=== PATIENT | male | born 1950 | race Caucasian/White ===

== ENCOUNTER 2024-08-04 14:48 | Emergency (ER) | payer MEDICARE, SELFPAY ==
--- NOTE | 2024-08-04 14:51 | CT_ITS ---
PROCEDURE INFORMATION: Exam: CTA Neck With Contrast Exam date and time: 08/04/2024 3:00 PM Age: 74 years old Clinical indication: Stroke-like symptoms; RT upper extremity weakness; Additional info: Possible stroke TECHNIQUE: Imaging protocol: Computed tomographic angiography of the neck with contrast. Exam focused on the cervical segments of the vasculature. 3D rendering (Not supervised by radiologist): MIP and/or 3D reconstructed images were created by the technologist. Radiation optimization: All CT scans at this facility use at least one of these dose optimization techniques: automated exposure control; mA and/or kV adjustment per patient size (includes targeted exams where dose is matched to clinical indication); or iterative reconstruction. Contrast material: ISOVUE; Contrast volume: 80 ml; Contrast route: INTRAVENOUS (IV); COMPARISON: CT CERVICAL SPINE WO CON 08/04/2024 2:58 PM FINDINGS: Right common carotid artery: No stenosis. No dissection or occlusion. Right internal carotid artery: No stenosis of the extracranial segment. No dissection or occlusion. Right external carotid artery: No occlusion or stenosis of the origin. Left common carotid artery: No stenosis. No dissection or occlusion. Left internal carotid artery: No stenosis of the extracranial segment. No dissection or occlusion. Left external carotid artery: No occlusion or stenosis of the origin. Right vertebral artery: No stenosis. No dissection or occlusion. Left vertebral artery: No stenosis. No dissection or occlusion. Soft tissues: Normal. No significant soft tissue swelling. Bones/joints: No acute fracture. IMPRESSION: No stenosis or occlusion. REFERENCES: NASCET CRITERIA. The degree of stenosis in the cervical segment of the internal carotid artery is based on NASCET criteria. Normal is no stenosis. Mild is less than 50% stenosis. Moderate is 50-69% stenosis. Severe is 70% to 99% stenosis. Total occlusion is no detectable patent lumen.
--- NOTE | 2024-08-04 14:51 | CT_ITS ---
PROCEDURE INFORMATION: Exam: CT Head Without Contrast Exam date and time: 08/04/2024 2:57 PM Age: 74 years old Clinical indication: Stroke-like symptoms; RT upper extremity weakness; Additional info: Possible stroke TECHNIQUE: Imaging protocol: Computed tomography of the head without contrast. Radiation optimization: All CT scans at this facility use at least one of these dose optimization techniques: automated exposure control; mA and/or kV adjustment per patient size (includes targeted exams where dose is matched to clinical indication); or iterative reconstruction. Other technique: STROKE PROTOCOL was implemented. COMPARISON: No relevant prior studies available. FINDINGS: Brain: Central and cortical brain atrophy evident, appropriate for patient age. There is nonspecific periventricular low attenuation, likely microangiopathic disease. No acute intracranial hemorrhage. Cerebral ventricles: No ventriculomegaly. Paranasal sinuses: Visualized sinuses are unremarkable. No fluid levels. Mastoid air cells: Visualized mastoid air cells are well aerated. Bones: Unremarkable. No acute fracture. Soft tissues: Unremarkable. IMPRESSION: No acute intracranial abnormality. ASSESSMENT: ASPECTS ([place] Stroke Program Early CT Score) is 10.
--- NOTE | 2024-08-04 14:51 | CT_ITS ---
PROCEDURE INFORMATION: Exam: CTA Head With Contrast, Arteriography Exam date and time: 08/04/2024 3:00 PM Age: 74 years old Clinical indication: Stroke-like symptoms; RT upper extremity weakness; Additional info: Possible stroke TECHNIQUE: Imaging protocol: Computed tomographic angiography of the head with contrast. Exam focused on the arteries. 3D rendering (Not supervised by radiologist): MIP and/or 3D reconstructed images were created by the technologist. Radiation optimization: All CT scans at this facility use at least one of these dose optimization techniques: automated exposure control; mA and/or kV adjustment per patient size (includes targeted exams where dose is matched to clinical indication); or iterative reconstruction. Contrast material: ISOVUE; Contrast volume: 80 ml; Contrast route: INTRAVENOUS (IV); COMPARISON: CT HEAD/BRAIN WO CON 08/04/2024 2:57 PM FINDINGS: ANTERIOR CIRCULATION: Right internal carotid artery: Intracranial segment is patent with no significant stenosis. No aneurysm. Right middle cerebral artery: No occlusion or significant stenosis. No aneurysm. Right anterior cerebral artery: No occlusion or significant stenosis. No aneurysm. Left internal carotid artery: Intracranial segment is patent with no significant stenosis. No aneurysm. Left middle cerebral artery: Occlusion of the M2 segment left MCA. Left M1 segment MCA patent. Left anterior cerebral artery: No occlusion or significant stenosis. No aneurysm. POSTERIOR CIRCULATION: Right vertebral artery: No occlusion or significant stenosis. No aneurysm. Left vertebral artery: No occlusion or significant stenosis. No aneurysm. Basilar artery: No occlusion or significant stenosis. No aneurysm. Right posterior cerebral artery: No occlusion or significant stenosis. No aneurysm. Left posterior cerebral artery: No occlusion or significant stenosis. No aneurysm. Brain: No definite mass, mass effect, or midline shift. Cerebral ventricles: No ventriculomegaly. Bones/joints: Unremarkable. No acute fracture. Soft tissues: Unremarkable. IMPRESSION: Occlusion of the M2 segment left MCA. Findings were discussed with TANK Hansen on 08/04/2024 3:30 PM EDT
--- NOTE | 2024-08-04 14:53 | ECG_ITS ---
APPROVED REPORT Exam: Resting ECG HR:89 bpm ECG Measurements Heart Rate 89 AXES QRSd 159 QRS -74 QT 382 T 77 QTc 429 Conclusion Normal sinus rhythm, left axis deviation, right bundle branch block Electronically signed by : Jakub Phillips, 08/04/2024 16:16:48
--- NOTE | 2024-08-04 14:53 | CT_ITS ---
PROCEDURE INFORMATION: Exam: CT Cervical Spine Without Contrast Exam date and time: 08/04/2024 2:58 PM Age: 74 years old Clinical indication: Other: Possible stroke; Additional info: Stroke alert, found on ground TECHNIQUE: Imaging protocol: Computed tomography of the cervical spine without contrast. Radiation optimization: All CT scans at this facility use at least one of these dose optimization techniques: automated exposure control; mA and/or kV adjustment per patient size (includes targeted exams where dose is matched to clinical indication); or iterative reconstruction. COMPARISON: CT HEAD/BRAIN WO CON 08/04/2024 2:57 PM FINDINGS: Bones: No acute fracture. Normal alignment. Severe disc space narrowing C5-C6 and C6-C7 with osteophyte formation. Mild disc space narrowing at C7-T1. No significant disc bulge or herniation. No severe spinal canal stenosis. Multilevel facet arthropathy with associated foraminal stenosis. Lungs: Lung apices are normal. Soft tissues: Unremarkable. IMPRESSION: No acute findings.
--- NOTE | 2024-08-04 14:56 | PC.NURSE ---
fingerstick glucose 119
[2024-08-04 14:57] VITALS: BP 208/118; PULSE 93; RESP 20; TEMP 36.8; O2SAT 93; BMI 25.7
[2024-08-04] MEDS: IOPAMIDOL-370 (76%);100ML BOTTLE 80 ML IV (15:01)
[2024-08-04] MEDS: SODIUM CHLORIDE 0.9% 10ML SYR (RAD ONLY) 10 ML IV (15:01)
[2024-08-04] MEDS: 0.9 % SODIUM CHLORIDE 50 ML VIAL IV (15:01)
--- NOTE | 2024-08-04 15:04 | PC.NURSE ---
pt returned to room from CT scan.
[2024-08-04 15:06] LABS: Basophils # 0.1 K/mm3 (0-0.2); Basophils % 0.8 % (0.1-2.0); Eosinophils # 0.1 Kmm3 (0.0-0.4); Eosinophils % 0.6 % (0.1-12.0); Hematocrit 51.1 % (42.0-52.0); Lymphocytes # 1.7 K/mm3 (0.7-4.5); Lymphocytes % 16.3 % (10-50); Mean Corpuscular HGB Conc 35.6 g/dL (31.8-35.4); Mean Corpuscular Hemoglobin 31.6 pg (27.0-31.2); Mean Corpuscular Volume 88.7 fl (80-94); Mean Platelet Volume 9.7 fl (7.4-10.4); Monocytes # 0.7 K/mm3 (0.1-1.0); Monocytes % 6.3 % (1.7-9.3); Neutrophils # 7.9 K/mm3 (1.8-7.8); Neutrophils % 75.5 % (37.0-80.0); Nucleated Red Blood Cells # 0 10^3/uL; Nucleated Red Blood Cells % 0 %; Platelet Count 280 K/mm3 (142-424); Red Blood Count 5.76 M/mm3 (4.60-6.20); Red Cell Distribution Width 13.1 % (11.5-17.5); Red Cell Distribution Width-SD 42.5 fL; White Blood Count 10.4 K/mm3 (4.8-10.8)
[2024-08-04 15:07] LABS: Albumin Level 4.8 g/dl (3.5-5.0); Chloride 104 mmol/L (98-107); Potassium 4.2 mmoL/L (3.5-5.1); Sodium 134 mmol/L (136-145)
[2024-08-04 15:09] LABS: Alanine Aminotransferase 34 U/L (12-78); Alkaline Phosphatase 64 U/L (38-126); Aspartate Amino Transferase 53 U/L (17-59); Bilirubin,Total 1.6 mg/dl (0.2-1.3); Blood Urea Nitrogen 14 mg/dl (9-20); Creatinine Clearance Estimated 81 mL/min (50-200); Estimated Glomerular Filt Rate 73 ml/min (>60); GFR (African American) 88 ML/MIN (>60)
[2024-08-04 15:10] LABS: Albumin/Globulin Ratio 1.5 (1.1-1.8); Anion Gap 11.2 mEq/L (5-15); Calcium 9.8 mg/dl (8.4-10.2); Carbon Dioxide 23 mmol/L (22.0-30.0); Cholesterol 206 mg/dl (140-200); Creatine Kinase 331 U/L (55-170); Globulin 3.2 g/dL (1.3-3.2); Glucose 115 mg/dl (74-100); Triglycerides 208 mg/dl (30-150); VLDL Cholesterol 42 mg/dL (0-40)
[2024-08-04 15:11] LABS: Chol/HDL Ratio 5.7 (1-3.5); HDL Cholesterol 36 mg/dl (40-60)
[2024-08-04 15:14] LABS: Hemoglobin 18.2 g/dL (14.1-18.0)
--- NOTE | 2024-08-04 15:15 | ED_ITS ---
Discharge Plan Disposition Patient Disposition: Xfer Other Condition: Serious Chief Complaint: Neuro Symptoms/Deficit Prescriptions Prescriptions: No Action cephalexin 500 MG capsule 500 mg PO Q6H 10 Days Qty: 40 0RF Referrals Follow up/Referrals: Jessica Conteh MD [Primary Care Provider] - See instructions Clinical Impressions Clinical Impression: Acute CVA (cerebrovascular accident) Stand Alone Forms Stand Alone Forms: Transfer Record - ED Print Language Print Language: Georgian Discharge ED Provider: Jakub Phillips General Adult HPI General Chief complaint: Neuro Symptoms/Deficit Stated complaint: Stroke like symptoms Time Seen by Provider: 08/04/24 14:48 Mode of Arrival: Wheelchair Source of Information: Patient and Relative Description of Symptoms (Recalled from ER Triage Doc. by RN): pt daughter brought him in [place] to stroke like s/s, last known well at 1000 today per daughter, upon triage fbs 119, pt manual BP was 208/119, pt speech is slurred with facial droop History of Present Illness HPI narrative: 74-year-old male presents to the ED due to strokelike symptoms with last known normal at approximately 10 AM this morning per daughter. Patient was found on ground in barn while feeding animals. Presents today with slurred speech, right facial droop. Seen at bedside immediately on arrival, stroke alert called on arrival. Past medical history of hypertension, hyperlipidemia. Not on blood thinners however patient does take daily aspirin presumably for medical prophylaxis. Glucose 119 on arrival. NIH 11. Patient is having right facial droop, global aphasia, dysarthria, limb ataxia, drift of right lower extremity. Patient denies loss of consciousness. Denies chest pain, shortness of breath. Following commands. Alert. Unable to answer how old he is or what month it is. Aphasia, dysarthria. Due to timeframe patient is not eligible for tPA or TNK Related Data Previous Rx's ?Medication ?Instructions ?Recorded cephalexin 500 mg capsule 500 mg PO Q6H 10 days #40 caps 04/16/19 Allergies Allergy/AdvReac Type Severity Reaction Status Date / Time No Known Allergies Allergy Verified 04/16/19 09:48 [facility] Disclaimer: The information contained in this section may have been updated after the patient was seen, as this information can be updated by other users. Social History Smoking Status: Never smoker alcohol intake: never current occupational status: other Travel in the last 8 weeks?: None Have you lived/traveled outside [place] in past 30 days?: No Contact w/someone who lives/traveled outside US past 30 days?: No Exposure to someone with infectious disease in past 14 days?: No Do you have a fever (greater than 100.4 F or 38 C)?: No Have you tested positive for COVID-19?: No Exposed to someone with COVID-19 in past 14 days?: No Do you have a sore throat?: No Do you have a cough?: No Do you have any weakness?: No Do you have any diarrhea?: No Are you experiencing any unusual bleeding?: No Do you have any muscle aches/pain?: No Do you have any abdominal pain?: No Are you experiencing loss of taste or smell?: No ROS Obtained: Yes Systems reviewed as appropriate & no additional complaints except as documented Physical Exam General General appearance: alert and in distress Head Head exam: atraumatic and normocephalic Eye Eye exam: Present normal appearance, PERRL and EOMI ENT ENT exam: Present normal exam Neck Neck exam: Present normal inspection and full ROM Chest Chest inspection: Present normal inspection and symmetric chest wall rise; Absent tenderness Respiratory Respiratory exam: Absent respiratory distress or stridor Cardiovascular Cardiovascular exam: Present regular rate and normal rhythm Abdominal Exam Abdominal exam: Present soft; Absent distention or tenderness Extremities Exam Extremities exam: Present normal inspection and full ROM Back Exam Back exam: Present normal inspection Neurological Exam Neurological exam: Present alert and other (Upper extremity limb ataxia bilaterally, aphasia, dysarthria, visual alanis intact, right sided facial droop, slurred speech, sensation intact bilaterally, right lower extremity with drift, NIH 11) Psychiatric Psychiatric exam: Present normal affect Skin Skin exam: Present warm, dry and intact Medical Decision Making Medical Records Medical records reviewed: Yes I reviewed the patient's medical records. Screening: Per USPSTF and CDC recommendations, given the prevalence of disease in our region, it is our hospital?s policy to screen for HIV and viral Hepatitis for all patients aged 18 and over and those with ongoing risk factors. [place] Inquiry Pt receiving controlled substance: No Vital Signs: 08/04/24 14:57 08/04/24 15:30 Temperature 98.2 F Temperature Source Oral Pulse Rate 78 Pulse Rate [Left Radial] 93 H Respiratory Rate 20 15 Blood Pressure 170/93 H Blood Pressure [Right Arm] 208/118 H Blood Pressure Mean 118 Blood Pressure Mean [Right Arm] 148 Blood Pressure Source [Right Arm] Manual Cuff/ Auscultation 02 Sat by Pulse Oximetry 93 L 96 Oxygen Delivery Method Room Air Room Air Lab Data Lab Results 08/04/24 14:51: WBC 10.4, RBC 5.76, Hgb 18.2 H, Hct 51.1, MCV 88.7, MCH 31.6 H, MCHC 35.6 H, RDW 13.1, Plt Count 280, MPV 9.7, Neut % (Auto) 75.5, Lymph % (Auto) 16.3, [place] % (Auto) 6.3, Eos % (Auto) 0.6, Baso % (Auto) 0.8, Neut # (Auto) 7.9 H, Lymph # (Auto) 1.7, [place] # (Auto) 0.7, Eos # (Auto) 0.1, Baso # (Auto) 0.1, Sodium 134 L, Potassium 4.2, Chloride 104, Carbon Dioxide 23, Anion Gap 11.2, BUN 14, Creatinine 1.00, Estimated Creat Clear 81, Estimated GFR 73, Est GFR ( Amer) 88, Glucose 115 H, Calcium 9.8, Total Bilirubin 1.6 H, AST 53, ALT 34, Alkaline Phosphatase 64, Total Creatine Kinase 331 H, Troponin I 0.02, Total Protein 8.0, Albumin 4.8, Globulin 3.2, Albumin/Globulin Ratio 1.5, Triglycerides 208 H, Cholesterol 206 H, LDL Cholesterol Direct 131.35 H, VLDL Cholesterol 42 H, HDL Cholesterol 36 L, Cholesterol/HDL Ratio 5.7 H, Plasma/Serum Alcohol < 10 08/04/24 14:51 08/04/24 14:51 Orders (Tests/Meds): ED MEDICATIONS Generic Name Dose Route Start Last Admin Trade Name Freq PRN Reason Stop Dose Admin Sodium Chloride 10 ml 08/04/24 14:51 Sodium Chloride 0.9% 10ml Flush Syringe IV 09/03/24 14:50 NEEDED PRN Maintain IV Site Sodium Chloride 10 ml 08/04/24 15:00 08/04/24 15:01 Sodium Chloride 0.9% 10ml Syr (Rad Only) IV 09/03/24 14:59 10 ml NEEDED PRN Administration Maintain IV Site Discontinued Medications Generic Name Dose Route Start Last Admin Trade Name Freq PRN Reason Stop Dose Admin Iopamidol 80 ml 08/04/24 15:00 08/04/24 15:01 Iopamidol-370 (76%);100ml Bottle IV 08/04/24 15:01 80 ml ONCE ONE Administration Sodium Chloride 50 ml 08/04/24 15:00 08/04/24 15:01 0.9 % Sodium Chloride 50 Ml Vial IV 08/04/24 15:01 50 ml ONCE ONE Administration ORDERS Category Date Time Status CT angio head Stat Cat Scan 08/04/24 14:[address] angio neck Stat Cat Scan 08/04/24 14:[address] cervical spine wo con Stat Cat Scan 08/04/24 14:[address] head/brain wo con Stat Cat Scan 08/04/24 14:51 Completed Activated Partial Thrombo Time Stat Lab 08/04/24 14:51 Received CK [Creatine Kinase] Stat Lab 08/04/24 14:51 Completed Complete Blood Count Auto Diff Stat Lab 08/04/24 14:51 Completed Comprehensive Metabolic Panel Stat Lab 08/04/24 14:51 Completed Drug Screen,Urine Stat Lab 08/04/24 14:51 Ordered Ethyl Alcohol Stat Lab 08/04/24 14:51 Completed Lipid Panel Stat Lab 08/04/24 14:51 Completed Prothrombin Time INR Stat Lab 08/04/24 14:51 Received Troponin I Q3H Lab 08/04/24 18:00 Ordered Troponin I Q3H Lab 08/04/24 21:00 Ordered Troponin I Stat Lab 08/04/24 14:51 Completed Urinalysis and Microscopic Stat Lab 08/04/24 14:51 Ordered ECG Data Tracing #1: Normal sinus rhythm, left axis deviation, right bundle branch block noted, no prior EKG available for review Medical Decision Narrative: Patient with history and exam per above presenting for evaluation of strokelike symptoms with right facial droop, slurred speech seen at bedside on arrival, stroke alerted, NIH 11, no hypoglycemia on [id number] glucose at bedside. Patient hypertensive on arrival with blood pressure approximately 210 systolic Diagnoses considered include CVA, large vessel occlusion, TIA, hypertensive encephalopathy ED workup and treatment included: As above Labs were independently interpreted by me, significant for No noted anemia, no noted leukocytosis, no noted thrombocytopenia. Mild hyponatremia, no acute actionable electrolyte abnormalities. Mild elevation of total bilirubin at 1.6, CK3 31. Elevated triglycerides, elevated cholesterol levels. Initial troponin 0.02. AST, ALT, alkaline phosphatase within normal levels. Repeat trop pending. Imaging was independently visualized and interpreted by me, significant for C- spine without noted acute traumatic injury. CT head, CTA head and neck with concern for left M2 occlusion Please refer to radiology report for full details. My clinical impression at this time is most consistent with CVA with large vessel occlusion of M2. Discussed patient with stroke neurology team at [facility] who have accepted patient, they recommend permissive hypertension up to systolic 220. Patient accepted by Dr. Santos with [facility] neuro ICU. Patient and family are agreeable with this. Attempted to arrange for airflight however due to weather conditions airflight unavailable. Patient to be transferred via ground EMS, advanced life support team. Medically stable with hemodynamically stable vitals at time of transfer. I discussed my clinical impression with patient and answered all questions. At this time, the evidence for any other entities in the differential is insufficient to warrant any further testing or ED observation. This was explained to the patient. The patient was advised that persistent or worsening symptoms require further evaluation. Critical Care Critical Care Time Critical Care Time: Yes Attestation: On 08/04/24, the high probability of a clinically significant, sudden or life threatening deterioration of the following system(s) required my full and direct attention, intervention and personal management. The time I documented below is in addition to time spent performing reported procedures but includes the following listed in this critical care notation. Total Time Total Critical Care Time: 35
[2024-08-04 15:21] LABS: Direct LDL Cholesterol 131.35 mg/dL (100-129)
[2024-08-04 15:24] LABS: Troponin I 0.02 ng/ml (0.00-0.034)
[2024-08-04 15:30] VITALS: BP 170/93; PULSE 78; RESP 15; O2SAT 96
[2024-08-04 15:44] LABS: Ethyl Alcohol < 10 mg/dl (0-10)
[2024-08-04 15:59] VITALS: BP 170/93; PULSE 80; RESP 18; TEMP 36.8; O2SAT 98
[2024-08-04 16:11] LABS: Activated Partial Thrombo Time 29.1 seconds (22.8-30.6); INR 0.98 (0.9-1.1)
== END 2024-08-04 16:01 | disposition other institution (70) ==
PROVIDERS: Emergency Provider Student in an Organized Health Care Education/Training Program; PCP Family Medicine
DX: I63.9 Cerebral infarction, unspecified (principal); I66.02 Occlusion and stenosis of left middle cerebral artery; I10 Essential (primary) hypertension; I45.10 Unspecified right bundle-branch block; R29.711 NIHSS score 11
CPT/HCPCS: 70450; 70496; 70498; 72125; 80053; 80061; 80320; 82550; 84484; 85025; 85610; 85730; 93005; 99291; Q9967

== ENCOUNTER 2024-09-09 08:47 | Outpatient (RCR) | payer MEDICARE, MEDICAID, SELFPAY | END 2024-09-09 23:59 | disposition home or self-care (01) | LOC: PT 08:47 | PROVIDERS: PCP Family Medicine; Visit Provider Physical Medicine & Rehabilitation | DX: I63.9 Cerebral infarction, unspecified (principal) | CPT/HCPCS: 97161 ==

== ENCOUNTER 2024-09-30 13:00 | Outpatient (RCR) | payer MEDICARE, MEDICAID, SELFPAY ==
--- NOTE | 2024-09-09 15:54 | HMH.SLAPHASI ---
Speech & Language Evaluation Speech/Language Aphasia Evaluation Start: 09/09/24 15:24 Freq: once Status: Complete Protocol: Document 09/09/24 15:24 MONICA (Rec: 09/09/24 15:53 [facility] [id number]) Aphasia Assessment/Goals/Plan Assessment Date of Evaluation: 09/09/24 Evaluation Type Initial Certification Assessment/Problems CVA per MD order Does Patient Qualify Yes for Service Qualify/Failure Based on clinical observations throughout informal Comment cognitive-linguistic evaluation and pt interview, pt would benefit from further skilled speech therapy services 1x/week for 12 weeks in order to continue evaluation as well as target cognitive-linguistic deficits and improve verbal expression/auditory comprehension. Plan Pt will be seen # 1 times/week for # weeks 2 Anticipate reaching 8 STG in # weeks Anticipate reaching 12 LTG in # weeks Pt/Guardian verbally Yes ack understanding of dx/prognosis/ goals G -code Required No STG-Auditory Comprehension Sentence Level 80 3rd Element 80 STG-Reading Comprehension Reading Paragraphs & 80 Ans Questions STG-Verbal Expressive Language Repetitive Abilities 80 STG-Attending/Orientation/Memory Delayed Recall 80 Attention/ 80 Concentration Memory Recall 80 STG-Comparative/Linguistic Skills Categorization 80 Ability Knitted Goods Shaper Goals Increase oral motor Yes tone to improve intelligibility. Increase auditory Yes comprehension skills to communicate w/ family & friends Increase verbal Yes expression skills to communicate w/ family & friends. Increase cognitive Yes skills to communicate w/family & friends Education Instructions PERINATOLOGY PHYSICIAN discussed clinical observations made throughout provided informal cognitive-linguistic evaluation and POC with pt who expressed understanding. Pt/Caregiver Able to Able to recall/restate Recall Information Reinforcement needed No Speech & Language HPI History Present Illness Description of Mr. Pichardo is a pleasant 74 y.o. male presenting to Patient Problem [facility] for a skilled speech therapy evaluation post CVA. He was seen independently. PMHx was reviewed via records. PMHx includes hypertension, hyperlipidemia, and CVA. CVA was reportedly on 08/04/2024. Mr. Pichardo was transferred to [facility] and was sent to [facility] for inpatient rehabilitation. Pt received mechanical thrombectomy. After stroke, pt had complaints of word finding difficulties, slurred speech, and dysphagia. Pt stated that dysphagia has resolved itself and [facility] reported that pt was on a regular/thin liquid diet when discharged. Pt states he is still having difficulty speaking, and some difficulty understanding others. Rehab Services Speech therapy Assessed Therapy History Seen by other [facility] Yes therapists Who/When/ [facility] - met all goals re: dysphagia. Still targeting Recommendations auditory comprehension, memory, and verbal expression at time of discharge. Other Specialists? Yes Who/When/ OT and PT at [facility]. Seen for OT and PT evaluation at [facility] Recommendations Outpatient Rehab Services 09/09/24. Aphasia Evaluations Communication Speech Pt exhibited weak and slurred speech. Pt intelligible Intelligibility about 50-75% of the time in known contexts during spontaneous conversation. Pt's intelligibility improved at word/phrase level. Auditory Yes: Word Level Comprehension Sentences No: Following Directions Paragraph Conversation AC Comment Pt able to independently identify objects/body parts at word level. Pt able to comprehend simple y/n questions , however had difficulty with complex y/n. Pt had difficulty following 2-3 step commands, but was able to independently follow 1-step commands. Pt had difficulty comprehending a paragraph and was inconsistently able to comprehend information in conversation. Reading Yes: Letter Naming Comprehension Word Naming Sentences No: Paragraphs RC Comment Pt was able to read and identify letters and words. Pt able to read sentences and fill in the blank. Pt able to read paragraph however was u/a to fill in the blank. Verbal Expressive Yes: Automatic Speech Language Completing Sentences Word Level Naming No: Repetition Abilities CALEB Comment Pt independent at automatic speech tasks, completing sentences, and naming. Pt had difficulty with repetition tasks, and often produced the wrong order or omitted stimuli. Written Language Yes: Signature Sentence Writing WL Comment Pt independent at writing name and address. Attending/ Yes: Orientation Orientation/Memory No: Delayed Recall W/Interference Attention/Concentration Memory AOM Comment Pt able to recall 1/4 stimuli independently during delayed recall task, and 3/4 when given moderate verbal cues. Pt independent with orientation tasks. Pt exhibited difficulty with attention when counting forwards and backwards by three. Pt needed 1:1 assist for paragraph recall memory task. Congnitive/ Yes: Similarities/Differences Linguistic Skills Sequencing No: Categorization CLS Comment Pt able to average 10 items per category in 1 min time restraint. Pt independent at producing similarities/ differences between two objects and sequencing basic tasks. PHYSICIAN CERTIFICATION: I certify the specified therapy services for Kristofer Villalba JR are required, authorized, and reviewed every 30 days.
== END 2024-09-30 23:59 | disposition home or self-care (01) ==
LOC: ST 13:00
PROVIDERS: PCP Family Medicine; Visit Provider Physical Medicine & Rehabilitation
DX: I69.351 Hemiplegia and hemiparesis following cerebral infarction affecting right dominant side (principal)
CPT/HCPCS: 92507; 92523

== ENCOUNTER 2024-09-30 14:00 | Outpatient (RCR) | payer MEDICARE, MEDICAID, SELFPAY | END 2024-09-30 23:59 | disposition home or self-care (01) | LOC: OT 14:00 | PROVIDERS: PCP Family Medicine; Visit Provider Physical Medicine & Rehabilitation | DX: I63.9 Cerebral infarction, unspecified (principal) | CPT/HCPCS: 97110; 97166 ==

== ENCOUNTER 2024-10-15 14:00 | Outpatient (RCR) | payer MEDICARE, MEDICAID, SELFPAY | END 2024-10-15 23:59 | disposition home or self-care (01) | LOC: ST 14:00 | PROVIDERS: PCP Family Medicine; Visit Provider Physical Medicine & Rehabilitation | DX: I69.351 Hemiplegia and hemiparesis following cerebral infarction affecting right dominant side (principal) | CPT/HCPCS: 92507 ==

== ENCOUNTER → 2024-10-22 15:00 | Outpatient (RCR) | payer MEDICARE, MEDICAID, SELFPAY | LOC: OT 10-10 12:53 | PROVIDERS: PCP Family Medicine; Visit Provider Physical Medicine & Rehabilitation | DX: I63.9 Cerebral infarction, unspecified (principal) | CPT/HCPCS: 97110; 97168 ==

== ENCOUNTER 2025-01-21 08:51 | Outpatient (CLI) | payer MEDICARE, MEDICAID, SELFPAY ==
--- OUTSIDE RECORDS SUMMARY | 2025-01-20 10:45 | XMS_ITS | Encounter Summary ---
[facility] Address [address] [place] [address] Care Team Providers Care Credit Risk Review Officer Name Role Phone Kianna Ross Unknown Primary Care Provider Reason for Visit * Reason Comments Pacemaker Check Hypertension Pt states he is here today for follow up HTN. No chest pain or SOA. Encounter Details Date Type Department Care Team (Latest Contact Info) Description 01/20/2025 10:45 AM EDT Office Visit [facility] [address] [place] [address] Sanaz Vanessa MD [address] [place] [address] Cryptogenic stroke (Primary Dx); Primary hypertension; Status post placement of implantable loop recorder [Z95.818]; Pure hypercholesterolemia Social History Tobacco Use Types Packs/Day Years Used Date Smoking Tobacco: Never Passive Smoke Exposure: Never Smokeless Tobacco: Never Tobacco Cessation:Counseling Given: Yes Alcohol Use Standard Drinks/Week Comments Never 0 (1 standard drink = 0.6 oz pur e alcohol) [facility] Utilities Answer Date Recorded In the past 12 months has e electric, gas, oil, or water company threatened to shut off services in your home? No 08/07/2024 AUDIT-C Answer Date Recorded Q1: How often do you have a drink containing alcohol? Never 10/08/2024 Q2: How many drinks containi ng alcohol do you have on a typical day when you are drinking? Patient does not drink Q3: How often do you have si x or more drinks on one occasion? Never 10/08/2024 Overall Financial Resource Strain (CARDIA) Answe r Date Recorded How hard is it for you to pa y for the very basics like food, housing, medical care, and heating? Not hard at all 08/07/2024 [facility] - Occupational Stress Questionnaire Answer Date Recorded Do you feel stress - tense, restless, nervous, or anxious, or unable to sleep at night because your mind is troubled all the time - these days? Not at all 08/07/2024 Exercise Vital Sign Answer Date Recorde d On average, how many days pe r week do you engage in moderate to strenuous exercise (like a brisk walk)? 0 days 08/07/2024 On average, how many minutes do you engage in exercise at this level? 0 min 08/07/2024 Hunger Vital Sign Answer Date Recorded Within the past 12 months, y ou worried that your food would run out before you got the money to buy more. Never true 08/08/19 25 Within the past 12 months, t he food you bought just didn't last and you didn't have money to get more. Never true 08/07/2024 [facility] - Transportation Answer Date Re corded In the past 12 months, has l ack of transportation kept you from medical appointments or from getting medications? No 10/2024 In the past 12 months, has l ack of transportation kept you from meetings, work, or from getting things needed for daily living? No 08/07/2024 Abuse Screen Answer Date Recorded Feels Unsafe at Home or Work/School no 10/08/2024 Feels Threatened by Someone no 11/2024 Does Anyone Try to Keep You From Having Contact with Others or Doing Things Outside Your Home? no 10/08/2024 Physical Signs of Abuse Present no 10/08/2024 Housing Stability Answer Date Recorded Current Living Arrangements home 11/2024 Potentially Unsafe Housing Conditions none 10/08/2024 Family and Community Support Answer Forest e Recorded If for any reason you need h elp with day-to-day activities such as bathing, preparing meals, shopping, managing finances, etc., do you get the help you need? I get all the help I need 08/07/2024 How often do you feel lonely or isolated from those around you? Rarely 08/07/2024 Employment Answer Date Recorded Do you want help finding or keeping work or a job? I do not need or want help 08/07/2024 Disabilities Answer Date Recorded Difficulty Concentrating, Remembering or Making Decisions no 10/08/2024 Difficulty Managing Errands Independently no 10/08/2024 Education Answer Date Recorded Do you want help with school or training? For example, starting or completing job training or getting a high school diploma, GED or equivalent No 08/07/2024 Preferred Language Beninese 08/07/2024 PHQ-2 Answer Date Recorded Patient Health Questionnaire-2 Score 0 11/21/2024 Sex and Gender Information Value Date Recorded Sex Assigned at Not on file Legal Sex Male 3:57 PM EDT Gender Identity Not on file Sexual Orientation Not on file documented as of this encounter Last Filed Vital Signs Vital Sign Reading Time Taken Comments Blood Pressure 130/80 01/20/2025 11:01 AM EDT Pulse 73 01/20/2025 11:01 AM EDT Temperature - - Respiratory Rate - - Oxygen Saturation 97% 01/20/2025 11:01 AM EDT Inhaled Oxygen Concentration - - Weight 113 kg (249 lb) 01/20/2025 11:01 AM EDT Height 188 cm (6' 2 ) 01/20/2025 11:01 AM EDT Body Mass Index 31.97 01/20/2025 11:01 AM EDT documented in this encounter Progress Notes * Sanaz Vanessa MD - 01/20/2025 10:45 AM EDTAssociated Order(s): ECG 12 Lead Post-Procedure Diagnose(s): Cryptogenic stroke Images from the original note were not included. [facility] Provider Note Date: 01/20/2025 Name: Kristofer Pichardo : 1950 PCP: Roxann [place] MD Chief Complaint Patient presents with Pacemaker Check Hypertension Pt states he is here today for follow up HTN. No chest pain or SOA. Subjective History of Present Illness Kristofer Pichardo is a 75 y.o. male following up Loop recorder check today. EKG updated today B/P has been doing okay. Denies chest pain or palpitations. No shortness of air. Some occasional swelling in legs. Not concerning or any worse. Relays no problems with bleeding. 01/20/2025 No new issues or concerns. Cardiac history 1. Hypertension 2. Hyperlipidemia 3. CVA-admitted to [facility] on 08/04/2024 with left MCA occlusion s/p mechanical thrombectomy. Suspected cardioembolic source 4. Suspected A-fib due to recent stroke, no A-fib noted on recent Holter monitor or loop recorder Allergies[1] Current Medications[2] Past Medical History: Diagnosis Date Dyslipidemia 08/04/2024 Elevated cholesterol GERD (gastroesophageal reflux disease) HTN (hypertension) 08/04/2024 Hypertension Past Surgical History: Procedure Laterality Date INTERVENTIONAL RADIOLOGY PROCEDURE N/A 08/04/2024 Procedure: IR mechanical thrombectomy; Surgeon: Kristofer Cuadra MD; Location: [facility] LOC[facility]; Service: Interventional Radiology; Laterality: N/A; Family History Problem Relation Age of Onset COPD Mother Stroke Father No Known Problems Sister No Known Problems Brother Social History[3] Objective Vital Signs: BP 130/80 (BP Location: Right arm, Patient Position: Sitting, Cuff Size: Large Adult) Pulse 73 Ht 188 cm (74 ) Wt 113 kg (249 lb) SpO2 97% BMI 31.97 kg/m?? Estimated body mass index is 31.97 kg/m?? as calculated from the following: Height as of this encounter: 188 cm (74 ). Weight as of this encounter: 113 kg (249 lb). Physical Exam Constitutional: Appearance: Normal appearance. He is well-developed. HENT: Head: Normocephalic and atraumatic. Eyes: General: No scleral icterus. Pupils: Pupils are equal, round, and reactive to light. Cardiovascular: Rate and Rhythm: Normal rate and regular rhythm. Heart sounds: Normal heart sounds. No murmur heard. Pulmonary: Breath sounds: Normal breath sounds. No wheezing or rhonchi. Musculoskeletal: Right lower leg: No edema. Left lower leg: No edema. Skin: Capillary Refill: Capillary refill takes less than 2 seconds. Coloration: Skin is not cyanotic. Nails: There is no clubbing. Neurological: Mental Status: He is alert and oriented to person, place, and time. Motor: No weakness. Gait: Gait normal. Psychiatric: Mood and Affect: Mood normal. Behavior: Behavior is cooperative. Thought Content: Thought content normal. ECG 12 Lead Date/Time: 01/20/2025 11:43 AM Performed by: Sanaz Vanessa MD Authorized by: Sanaz Vanessa MD Comparison: compared with previous ECG from 08/04/2024 Similar to previous ECG Rhythm: sinus rhythm Rate: normal Conduction: right bundle branch block, left anterior fascicular block and 1st degree AV block QRS axis: left Other: no other findings Clinical impression: abnormal EKG Assessment and Plan ASSESSMENTS AND ORDERS Diagnoses and all orders for this visit: 1. Cryptogenic stroke (Primary) - CBC & Differential; Future - Comprehensive Metabolic Panel; Future - Lipid Panel; Future 2. Primary hypertension 3. Status post placement of implantable loop recorder [Z95.818] 4. Pure hypercholesterolemia - CBC & Differential; Future - Comprehensive Metabolic Panel; Future - Lipid Panel; Future Other orders - ECG 12 Lead Other orders ECG 12 Lead PLAN -doing well on blood thinners, no bleeding issues -due for updated cholesterol. LDL at time of stroke was 115. On high dose statin -no a fib so far on loop recorder but because of high suspicion will continue eliquis. Follow Up No follow-ups on file. Marcus Vanessa MD Cardiology and Sleep [facility] 01/20/2025 Please note that this explicitly excludes time spent on other separate billable services such as performing procedures or test interpretation, when applicable. This note was created using dictation software which occasionally transcribes nonsensical phrases. Please contact the provider if any clarification is needed. [1] No Known Allergies [2] Current Outpatient Medications: amLODIPine (NORVASC) 10 MG tablet, Take 1 tablet by mouth Daily., Disp: , Rfl: apixaban (ELIQUIS) 5 MG tablet tablet, Take 1 tablet by mouth Every 12 (Twelve) Hours. Indications:Other - full anticoagulation, Disp: , Rfl: atorvastatin (LIPITOR) 80 MG tablet, Take 1 tablet by mouth Every Night., Disp: , Rfl: pantoprazole (PROTONIX) 20 MG EC tablet, Take 1 tablet by mouth Daily., Disp: , Rfl: [3] Social History Socioeconomic History Marital status: Tobacco Use Smoking status: Never Passive exposure: Never Smokeless tobacco: Never Vaping Use Vaping status: Never Used Substance and Sexual Activity Alcohol use: Never Drug use: Never Sexual activity: Defer documented in this encounter Plan of Treatment Upcoming Encounters Date Type Department Care Team (Late st Contact Info) Description 02/21/2025 2:30 PM EST Office Visit [facility] [address] [place] [address] [place] [address] Loren Varma APRN [address] [place] [address] 07/21/2025 2:45 PM EDT Office Visit [facility] [address] [place] [address] Sanaz Vanessa MD [address] [place] [address] 07/21/2025 2:45 PM EDT Clinical Support No Requirements [facility] [address] [place] [address] Scheduled Orders Name Type Priority Associated Diagnoses Orde r Schedule CBC & Differential Lab Panel Routine Cryptogenic stroke Pure hypercholesterolemia Expected: 02/03/2025 (Approximate), Expires: 01/20/2026 Comprehensive Metabolic Panel Lab Routine Cryptogenic stroke Pure hypercholesterolemia Expected: 02/03/2025 (Approximate), Expires: 01/20/2026 Lipid Panel Lab Routine Cryptogenic stroke Pure hypercholesterolemia Expected: 02/03/2025 (Approximate), Expires: 01/20/2026 documented as of this encounter Procedures Procedure Name Priority Date/Time Associated Diagnosis Comments ECG 12-LEAD Routine 01/20/2025 11:43 AM EDT Cryptogenic stroke documented in this encounter Results * ECG 12-LEAD (01/20/2025 11:43 AM EDT) Narrative Sanaz Vanessa MD - 01/20/2025 11:43 AM EDT Sanaz Vanessa MD 01/20/2025 11:45 AM ECG 12 Lead Date/Time: 01/20/2025 11:43 AM Performed by: Sanaz Vanessa MD Authorized by: Sanaz Vanessa MD Comparison: compared with previous ECG from 08/04/2024 Similar to previous ECG Rhythm: sinus rhythm Rate: normal Conduction: right bundle branch block, left anterior fascicular block and 1st degree AV block QRS axis: left Other: no other findings Clinical impression: abnormal EKG Sanaz Vanessa MD ECG ORDERABLES Final Result documented in this encounter Visit Diagnoses Diagnosis Cryptogenic stroke- Primary Primary hypertension Unspecified essential hypertension Status post placement of implantable loop recorder [Z95.818] Pure hypercholesterolemia documented in this encounter Care Teams Credit Risk Review Officer Relationship Specialty Start Date End Date Roxann [place] MD [address] [place] [address] PCP - General Hospitalist 09/11/24 documented as of this encounter
--- OUTSIDE RECORDS SUMMARY | 2025-01-21 09:08 | XMS_ITS | Clinical Summary ---
Author Organization Healthcare Address [address] [place] [address] Care Team Providers Care Gas Line Repairer Name Role Phone Pcp, No Primary Care Provider Unavailabl e Allergies No known active allergies Medications Eliquis 5 MG tablet Take 1 tablet by mouth 2 times a day. Active amLODIPine (Norvasc) 10 MG tablet Take 1 tablet by mouth daily. Active atorvastatin (Lipitor) 80 MG tablet Take 1 tablet by mouth daily. Active pantoprazole (ProtoNix) 20 MG EC tablet Take 1 tablet by mouth 1 time each day. 09/18/2024 Active Encounters Date Type Department Care Team Description 10/30/2024 1:30 PM EDT Office Visit [facility] at [facility] [address] [place] [address] Nate Norton MD Ischemic stroke (CMS/HCC) (Primary Dx); Dysarthria; Expressive aphasia 10/30/2024 Travel from Last 3 Months Social History Tobacco Use Types Packs/Day Years Used Date Smoking Tobacco: Never Smokeless Tobacco: Never Tobacco Cessation:Counseling Given: Not Answered Alcohol Use Standard Drinks/Week Comments Never 0 (1 standard drink = 0.6 oz pur e alcohol) PHQ-2 Answer Date Recorded Patient Health Questionnaire-2 Score 0 10/30/2024 AUDIT-C Answer Date Recorded Q1: How often do you have a drink containing alcohol? Never 10/30/2024 Q2: How many drinks containi ng alcohol do you have on a typical day when you are drinking? Patient does not drink Q3: How often do you have si x or more drinks on one occasion? Never 10/30/2024 Sex and Gender Information Value Date Recorded Sex Assigned at Not on file Legal Sex Male 2:28 PM EDT Gender Identity Not on file Sexual Orientation Not on file Last Filed Vital Signs Vital Sign Reading Time Taken Comments Blood Pressure 134/83 10/30/2024 1:34 PM EDT Pulse 72 10/30/2024 1:34 PM EDT Temperature - - Respiratory Rate - - Oxygen Saturation 95% 10/30/2024 1:34 PM EDT Inhaled Oxygen Concentration - - Weight 113 kg (250 lb) 10/30/2024 1:34 PM EDT Height 188 cm (6' 2 ) 10/30/2024 1:34 PM EDT Body Mass Index 32.1 10/30/2024 1:34 PM EDT Plan of Treatment Health Maintenance Due Date Last Done Comments [facility]-Hepatitis C Screening 1950 [facility]-Medicare Annual Wellness (AWV) 1950 [facility]-Infant/Child/Adol SDOH Screenings 1950 [facility]- SDOH Screenings 01/04/1966 [facility]-Adult SDOH Screenings 01/04/1966 [facility]-RSV Vaccine: 60+ Years or (1 - 1-dose 75+ series) 01/04/2023 [id number] Vaccine ( season) 2024 04/05/2024, 09/13/2021, 09/03/2020 [facility]-Influenza Vaccine (#1) 12/02/202404/05, 01/11/2023, 08/02/2022, Additional history exists [facility]-DTaP,Tdap,and Td Vaccines (3 - Td or Tdap) 03/11/2025 03/11/2015, 03/11/2015 [facility]-Diabetes: Hemoglobin A1C 08/05/2025 08/05/2024 [facility]-Depression Screening 10/30/2025 10/30/2024 [facility]-Hepatitis A Vaccines Aged Out 03/05/2018 No longer eligible based on patient's age to complete this topic [facility]-Zoster Vaccines Completed 04/12/2019, [facility]-Pneumococcal Vaccine: 50+ Years Completed 09/13/2021, 04/19/2016, 01/09/2014, Additional history exists [facility]-Obesity Intervention Completed 10/30/2024 HPV Vaccines Aged Out No longer eligi ble based on patient's age to complete this topic [facility]-HIB Vaccines Aged Out No longer e ligible based on patient's age to complete this topic [facility]-IPV Vaccines Aged Out No longer e ligible based on patient's age to complete this topic [facility]-Rotavirus Vaccines Aged Out No lo nger eligible based on patient's age to complete this topic Insurance [employer] MEDICARE Care Teams Gas Line Repairer Relationship Specialty Start Date End Date Pcp, [address] [place] [address] PCP - General Family Medicine 10/30/24
--- OUTSIDE RECORDS SUMMARY | 2025-01-21 09:08 | XMS_ITS | Clinical Summary ---
Author Organization [facility] Address [address] [place] [address] Care Team Providers Care Family Sociologist Name Role Phone Kianna Ross, Unknown Primary Care Provider Allergies No known active allergies Medications apixaban (ELIQUIS) 5 MG tablet tabletIndications: Other - full anticoagulation Take 1 tablet by mouth Every 12 (Twelve) Hours. Indications: Other - full anticoagulation 08/10/19 25 Active atorvastatin (LIPITOR) 80 MG tablet Take 1 tablet by mouth Every Night. 08/10/19 25 Active amLODIPine (NORVASC) 10 MG tablet Take 1 tablet by mouth Daily. 08/11/19 25 Active pantoprazole (PROTONIX) 20 MG EC tablet Take 1 tablet by mouth Daily. 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 -Holter monitor completed with analysis duration approximately 14 days. No atrial fibrillation noted on equipment monitor phototypesetting, 1% PAC with longest atrial tachycardia episode of 7 beats, low burden PVC 1%. Recommendation by neurology for loop recorder implant. -Continue apixaban 5 Mg every 12 hours as prescribed -Continue atorvastatin 80 Mg nightly -Recent stroke neurology appointment with recommendation for loop recorder. Discussed loop recorder procedure in detail with patient today and he is receptive of plan. Cryptogenic stroke 08/04/2024 Assessment & Plan (09/16/2024 3:02 PM EDT): -Admitted to [facility] on 08/04/2024 from [facility] after being [place] with right facial droop, right sided weakness, aphasia and dysarthria. -Imaging revealed a left MCA occlusion with a corresponding perfusion deficit for which patient was taken to the [facility] where he underwent a mechanical thrombectomy resulting in TICI 3 flow. -MRI brain from 08/06/2024 revealed areas of acute infarct in the left MCA territory with minimal edema without mass effect or hemorrhage. -TTE showed EF of 56-60%, normal left atrium, negative bubble study. - Discharged with empirical treatment for suspected cardioembolic source with Eliquis 5 mg twice daily. -Holter monitor completed with analysis duration approximately 14 days. No atrial fibrillation noted on equipment monitor phototypesetting, 1% PAC with longest atrial tachycardia episode of 7 beats, low burden PVC 1%. Recommendation by neurology for loop recorder implant. -Continue apixaban 5 Mg every 12 hours as prescribed -Continue atorvastatin 80 Mg nightly HTN (hypertension) 08/04/2024 Dyslipidemia 08/04/2024 Encounters Date Type Department Care Team Description 01/20/2025 10:45 AM EDT Office Visit [facility] [address] [id number] Sanaz Vanessa MD Cryptogenic stroke (Primary Dx); Primary hypertension; Status post placement of implantable loop recorder [Z95.818]; Pure hypercholesterolemia 01/20/2025 Travel 11/21/2024 2:30 PM EDT Office Visit [facility] [address] [place] [address] Loren Varma APRN History of stroke (Primary Dx); Primary hypertension; Dyslipidemia 11/21/2024 Travel 10/31/2024 Call Center Programs [facility] [address] [place] [address] Samantha Kenny RN 10/24/2024 Call Center Programs [facility] [address] [place] [address] Elsa Ramírez RN from Last 3 Months Family History Medical History Relation Name Comments No Known Problems Brother Stroke Father Kristofer Pichardo Sr COPD Mother No Known Problems Sister Relation Name Status Comments Brother Alive Father Kristofer Pichardo Sr Mother Sister Alive Social History Tobacco Use Types Packs/Day Years Used Date Smoking Tobacco: Never Passive Smoke Exposure: Never Smokeless Tobacco: Never Tobacco Cessation:Counseling Given: Yes Alcohol Use Standard Drinks/Week Comments Never 0 (1 standard drink = 0.6 oz pur e alcohol) [facility] Utilities Answer Date Recorded In the past 12 months has th e electric, gas, oil, or water company [...] and heating? Not hard at all 08/07/2024 [facility] of Occupat ional Health - Occupational Stress Questionnaire Answer Date Recorded [...] GED or equivalent No 08/07/2024 Preferred Language American 08/07/2024 PHQ-2 Answer Date Recorded Patient Health [...] Pulse 73 01/20/2025 11:01 AM EDT Temperature 36.9 C (98.4 F) 11/21/2024 2:10 PM EDT Respiratory Rate 14 10/08/2024 9:29 AM EDT Oxygen Saturation 97% 01/20/2025 11:01 AM EDT Inhaled Oxygen Concentration - - Weight 113 kg (249 lb) 01/20/2025 11:01 AM EDT Height 188 cm (6' 2 ) 01/20/2025 11:01 AM EDT Body Mass Index 31.97 01/20/2025 11:01 AM EDT Plan of Treatment Upcoming Encounters Date Type Department Care Team (Late st Contact Info) Description 02/21/2025 2:30 PM EST Office Visit [facility] [address] [facility] [address] [place] [phone] Loren Varma APRN [address] [facility] [address] [place] [address] 07/21/2025 2:45 PM EDT Office Visit [facility] [address] [phone] Sanaz Vanessa MD [address] [place] [address] 07/21/2025 2:45 PM EDT Clinical Support No Requirements [facility] [address] [phone] Health Maintenance Due Date Last Done Comments RSV Vaccine - Adults (1 - 1- dose 75+ series) 01/04/2023 ANNUAL WELLNESS VISIT 08/09/2024 HEPATITIS C SCREENING 08/09/2024 INFLUENZA VACCINE 11/01/2024 04/05/2024, , 08/02/2022, Additional history exists COVID-19 Vaccine ( - 2023-2 5 season) 2024 04/05/2024, 09/13/2021, 09/03/2020 TDAP/TD VACCINES (2 - Td or Tdap) 03/11/2025 015 LIPID PANEL 08/05/2025 08/05/2024 ZOSTER VACCINE Completed 04/12/2019, 01/10/2019 Pneumococcal Vaccine 50+ Completed 022, 04/19/2016, 01/09/2014, Additional history exists Medical Devices Implanted Type Area Inspector Glass Or Mirror Device Identifier Shelf Expiration Date Model / Serial / Lot Icm Lp/Recrd Assert/Iq 3plus 3yr 49.5x9.4x3.1mm -10/08/2024 Implanted:070 11/2024 by Sanaz Vanessa MD (Quantity not on file) Implant Chest Wall [employer] [id number] / [id number] / Procedures Procedure Name Priority Date/Time Associated Diagnosis Comments ECG 12-LEAD Routine 01/20/2025 11:43 AM EDT Cryptogenic stroke REMOTE DEVICE CHECK 12/22/2024 7 :29 AM EDT REMOTE DEVICE CHECK 12/16/2024 6 :17 PM EDT REMOTE DEVICE CHECK 11/26/2024 2 :00 AM EDT REMOTE DEVICE CHECK 10/22/2024 2 :00 AM EDT LIPID PANEL Routine 08/05/2024 4:25 AM EDT from Last 3 Months or Most Recently Relevant to Health Maintenance Results * ECG 12-LEAD (01/20/2025 11:43 AM [...] Sanaz Vanessa MD ECG ORDERABLES Final Result * Remote Device Check (12/22/2024 7:29 AM EDT) Only the most recent of4 resultswithin the time period is included. Date Time Interrogation Session [id number] [facility] Type Interrogation Session Remote Patient Initiated [facility] Implantable Pulse Generator Inspector Glass Or Mirror [employer] [facility] Implantable Pulse Generator Type ILR [facility] Implantable Pulse Generator Model 5300 Assert-IQ(TM) 3+ ICM [facility] Implantable Pulse Generator Serial Number [id number] [facility] Implantable Pulse Generator Implant Date [id number] [facility] 12/22/2024 7:29 AM EDT us Sanaz Vanessa MD CV IMPLANTABLE CARDIAC DEVIC E Final Result [facility] * (ABNORMAL) Lipid Panel (08/05/2024 4:25 AM EDT) Total Cholesterol 176 0 - 200 mg/dL 08/05/2024 5:14 AM EDT [facility] Triglycerides 142 0 - 150 mg/dL 08/05/2024 5:14 AM EDT [facility] HDL Cholesterol 36(L) 40 - 60 mg/dL 08/05/2024 5:14 AM EDT [facility] LDL Cholesterol 115(H) 0 - 100 mg/dL 08/05/2024 5:14 AM EDT [facility] VLDL Cholesterol 25 5 - 40 mg/dL 08/05/2024 5:14 AM EDT [facility] LDL/HDL Ratio 3.10 08/05/2024 5:14 AM EDT [facility] Blood Venipuncture / Unknown 08/05/2024 4:25 AM EDT 08/05/2024 4:35 AM EDT Narrative [facility] - 08/05/2024 5:14 AM EDT Cholesterol Reference Ranges (U.S. Department of Health and Human Services ATP III Classifications) Desirable <200 mg/dL Borderline High 200-239 mg/dL High Risk >240 mg/dL Triglyceride Reference Ranges (U.S. Department of Health and Human Services ATP III Classifications) Normal <150 mg/dL Borderline High 150-199 mg/dL High 200-499 mg/dL Very High >500 mg/dL HDL Reference Ranges (U.S. Department of Health and Human Services ATP III Classifications) Low <40 mg/dl (major risk factor for CHD) High >60 mg/dl ('negative' risk factor for CHD) LDL Reference Ranges (U.S. Department of Health and Human Services ATP III Classifications) Optimal <100 mg/dL Near Optimal 100-129 mg/dL Borderline High 130-159 mg/dL High 160-189 mg/dL Very High >189 mg/dL LDL is calculated using the NIH LDL-C calculation. us Jannette Cordova AQUATIC ECOLOGIST LAB BLOOD ORDERABLES Final R esult [facility]
[address] [place] [address], from Last 3 Months or Most Recently Relevant to Health Maintenance Insurance [employer] MEDICARE ADVANTAGE [facility] Advance Directives * CPR (Attempt to Resuscitate) (Latest Code Status on File) Date Activated Date Inactivated Comments 08/08/2024 5:13 AM 08/09/2024 4:43 PM Question Answer Comments Code Status (Patient has no pulse and is not breathing): CPR (Attempt to Resuscitate) Medical Interventions (Patie nt has pulse or is breathing): Full Support Level Of Support Discussed With: Patient Care Teams Family Sociologist Relationship Specialty Start Date End Date Roaxnn Washington MD [address] [place] [phone] PCP - General Hospitalist 09/11/24
--- OUTSIDE RECORDS SUMMARY | 2025-01-21 09:09 | XMS_ITS | Encounter Summary ---
Author Organization [facility] Address [address] [place] [address] Care Team Providers Care Erp Project Manager Name Role Phone Kianna Ross, Unknown Primary Care Provider Encounter Details Date Type Department Care Team (Latest Contact Info) Description 01/20/2025 Travel Social History Tobacco Use Types Packs/Day Years Used Date Smoking Tobacco: Never Passive Smoke Exposure: Never Smokeless Tobacco: Never Alcohol Use Standard Drinks/Week Comments Never 0 (1 standard drink = 0.6 oz pur e alcohol) [facility] Utilities Answer Date Recorded In the [...] and heating? Not hard at all 08/07/2024 [facility] [place] of Occupat ional Health - Occupational Stress [...] GED or equivalent No 08/07/2024 Preferred Language Icelandic 08/07/2024 PHQ-2 Answer Date Recorded Patient Health Questionnaire-2 Score 0 11/21/2024 Sex and Gender Information Value Date Recorded Sex Assigned at Not on file Legal Sex Male 3:57 PM EDT Gender Identity Not on file Sexual Orientation Not on file documented as of this encounter Plan of Treatment Upcoming Encounters Date Type Department Care Team (Late st Contact Info) Description 02/21/2025 2:30 PM EST Office Visit [facility] [address] [facility] [address] [place] [address] [phone] Loren Varma, HOME HOSPICE AIDE [address] [facility] [address] [place], [place] [phone] 07/21/2025 2:45 PM EDT Office Visit [facility] [address] [phone] Sanaz Vanessa MD [address] [place] [address] 07/21/2025 2:45 PM EDT Clinical Support No Requirements [facility] [address] [phone] documented as of this encounter Visit Diagnoses Not on filedocumented in this encounter Care Teams Erp Project Manager Relationship Specialty Start Date End Date Roxann Washington MD [address] [place] [address] [phone] PCP - General Hospitalist 09/11/24 documented as of this encounter
[2025-01-21 09:23] LABS: Hematocrit 46.0 % (42.0-52.0); Hemoglobin 15.8 g/dL (14.1-18.0); Immature Granulocytes % 0.3 %; Mean Corpuscular HGB Conc 34.3 g/dL (31.8-35.4); Mean Corpuscular Hemoglobin 31.2 pg (27.0-31.2); Mean Corpuscular Volume 90.7 fl (80-94); Nucleated Red Blood Cells % 0 %; Platelet Count 259 K/mm3 (142-424); Red Blood Count 5.07 M/mm3 (4.60-6.20); Red Cell Distribution Width-SD 44.2 fL; White Blood Count 7.6 K/mm3 (4.8-10.8)
[2025-01-21 09:49] LABS: Albumin Level 4.2 g/dl (3.5-5.0); Chloride 101 mmol/L (98-107)
[2025-01-21 09:50] LABS: Potassium 4.3 mmoL/L (3.5-5.1); Sodium 138 mmol/L (136-145)
[2025-01-21 09:52] LABS: Alanine Aminotransferase 32 U/L (12-78); Albumin/Globulin Ratio 1.3 (1.1-1.8); Alkaline Phosphatase 93 U/L (38-126); Anion Gap 12.3 mEq/L (5-15); Aspartate Amino Transferase 42 U/L (17-59); Bilirubin,Total 1.4 mg/dl (0.2-1.3); Blood Urea Nitrogen 17 mg/dl (9-20); Carbon Dioxide 29 mmol/L (22.0-30.0); Creatinine,Serum 1.10 mg/dl (0.66-1.25); Estimated Glomerular Filt Rate 65 ml/min (>60); GFR (African American) 79 ML/MIN (>60); Globulin 3.3 g/dL (1.3-3.2); Total Protein,Serum 7.5 g/dl (6.3-8.2)
[2025-01-21 09:53] LABS: Calcium 9.3 mg/dl (8.4-10.2); Cholesterol 125 mg/dl (140-200); Glucose 107 mg/dl (74-100); HDL Cholesterol 40 mg/dl (40-60); Triglycerides 113 mg/dl (30-150)
== END 2025-01-21 23:59 | disposition home or self-care (01) ==
PROVIDERS: PCP Family Medicine; Visit Provider Emergency Medicine
DX: E78.00 Pure hypercholesterolemia, unspecified (principal); I63.9 Cerebral infarction, unspecified
CPT/HCPCS: 36415; 80053; 80061; 85025